=== PATIENT | male | born 1985 | race Two or more races ===

== ENCOUNTER 2019-08-30 15:42 | Emergency (ER) | payer SELFPAY ==
[~2019-08-30] VITALS: Ht 175.3 cm; Wt 83.9 kg
--- NOTE | 2019-08-30 15:45 | NUR ---
ED Nurse Note: Patient walked in to ER c/o sandra MEAD x 2 days.
[2019-08-30 15:46] VITALS: BP 111/84
--- NOTE | 2019-08-30 15:51 | Emergency Room Report ---
History of Present Illness General Chief Complaint: Fever Present Illness HPI 34 YO male presents to the ED c/o Fever x 2 days- Since Tuesday. Pt. reports measured temperatures at home of 101 degrees. Pt. reports medical Hx of LUPUS and takes FA, MTX, and Hydroxychloroquin daily x 5 years. . He reports he has been taking Tylenol for fevers, and last took some at 2:30 this afternoon SHANK TAPPER. He denies Cough, sputum production. recent travel or ill contacts. PT. denies hx of Ashtma, smoking or COPD. No other aggravating or relieving factors at this time. Pt. has not taken any medication for his symptoms. Denies QUIJANO, CP, palpitations, wheezing, skin color changes, LOC, AMS, neck pain /stiffness or sudden onset of a QUIJANO. Allergies: Coded Allergies: No Known Allergies (Unverified , 08/30/19) COVID-19 Screening Contact w/high risk pt: No Recent Travel to affected area: No Experienced COVID-19 symptoms?: Yes COVID-19 symptoms experienced: Fever (T>100.4F or >38C), Shortness of Breath COVID-19 Testing performed SHANK TAPPER: No Patient History Past Medical History: see triage record Past Surgical History: none Pertinent Family History: none Reviewed Nursing Documentation: PMH: Agreed; PSxH: Agreed Review of Systems All Other Systems: negative except mentioned in HPI Physical Exam Vital Signs Date Time Temp Pulse Resp B/P (MAP) Pulse Ox O2 Delivery O2 Flow Rate FiO2 08/30/19 15:32 98.8 97 20 111/84 (93) 97 Room Air Sp02 EP Interpretation: reviewed, normal General Appearance: no apparent distress, alert, GCS 15, non-toxic Head: normocephalic, atraumatic Eyes: bilateral eye normal inspection, bilateral eye PERRL ENT: hearing grossly normal, normal voice Neck: full range of motion Respiratory: chest non-tender, lungs clear, normal breath sounds, no respiratory distress, no accessory muscle use, no wheezing, speaking full sentences Cardiovascular #1: regular rate, rhythm, no edema Musculoskeletal: normal range of motion, gait/station normal, non-tender Neurologic: alert, motor strength/tone normal, oriented x3, sensory intact, responsive, speech normal Psychiatric: judgement/insight normal Skin: no rash, normal color Lymphatic: no adenopathy Medical Decision Making PA Attestation Dr. Jimenez is my supervising Physician whom patient management has been discussed with. Diagnostic Impression: Primary Impression: Pneumonia Qualified Codes: J18.9 - Pneumonia, unspecified organism ER Course 34 YO male presents to the ED c/o Fever x 2 days- Since Tuesday. Pt. reports measured temperatures at home of 101 degrees. Pt. reports medical Hx of LUPUS and takes FA, MTX, and Hydroxychloroquin daily x 5 years. . He reports he has been taking Tylenol for fevers, and last took some at 2:30 this afternoon SHANK TAPPER. He denies Cough, sputum production. recent travel or ill contacts. PT. denies hx of Ashtma, smoking or COPD. No other aggravating or relieving factors at this time. Pt. has not taken any medication for his symptoms. Denies QUIJANO, CP, palpitations, wheezing, skin color changes, LOC, AMS, neck pain /stiffness or sudden onset of a QUIJANO. Ddx considered but are not limited to URI, pneumonia, PE, strep pharyngitis, meningitis, COVID-19 Vital signs: Pt. is afebrile, the remaining VS are WNL H&PE are most consistent with URI- no meningeal signs, oropharynx is not involved, no evidence of bacterial infection at this time. ORDERS: CXR: ABNORMAL- Left Lower lobe infiltrate ED INTERVENTIONS: None required at this time. This patient was evaluated in the context of the global COVID-19 pandemic, which necessitated consideration that the patient might be at risk for infection with the SARS-COV-2 virus that causes COVID-19. Institutional protocols and algorithms that pertaining to the evaluation of patients at risk for COVID-19 are in a state of rapid change based on information released by multiple regulatory bodies including the CDC and federal and state organizations. These policies and algorithms were followed during the patient' s care in the emergency department Pt. placed on Levaquin as an alternative to azithromycin due to being on hydroxychloroquine a QT prolonging agent. DISCHARGE: At this time pt. is stable for d/c to home. Will provide printed patient care instructions, and any necessary prescriptions. Care plan and follow up instructions have been discussed with the patient prior to discharge. Chest X-Ray Diagnostic Results Chest X-Ray Diagnostic Results : Chest X-Ray Ordered: Yes # of Views/Limited/Complete: 1 View Indication: Shortness of Breath EP Interpretation: Yes ANNE Xray: Interpretation reviewed, by supervising MD Interpretation: no effusion, no pneumothorax, other - Left sided lower lobe infiltrate. Impression: Other - abnormal Electronically Signed by: Elana Wong PA-C Last Vital Signs Date Time Temp Pulse Resp B/P (MAP) Pulse Ox O2 Delivery O2 Flow Rate FiO2 08/30/19 15:32 98.8 97 20 111/84 (93) 97 Room Air Disposition: HOME, SELF-CARE Condition: Stable Scripts Acetaminophen* (TYLENOL EXTRA STRENGTH*) 500 Mg Tablet 500 MG ORAL Q6H PRN for Mild Pain/Temp > 100.5, #20 TAB 0 Refills Prov: Elana Wong 08/30/19 Levofloxacin* (LEVAQUIN*) 750 Mg Tablet 750 MG ORAL DAILY for 7 Days, #7 TAB Prov: Elana Wong 08/30/19 Referrals: Jennifer Gudino [facility]. [facility] Patient Instructions: Community-Acquired Pneumonia, Adult, Bfuj-sp-Yans, Fever , Adult Additional Instructions: Take medications as directed. Follow up with a Primary Care Provider in 3-5 days, even if your symptoms have resolved. --Please review list of primary care clinics, if you do not already have a primary care provider Return sooner to ED if new symptoms occur, or current symptoms become worse. Do not drink alcohol, drive, or operate heavy machinery while taking Cough Syrup as this may cause drowsiness. - Please note that this Emergency Department Report was dictated using [employer] management manager technology software, occasionally this can lead to erroneous entry secondary to interpretation by the dictation equipment. Elana Wong August 30, 2019 15:51
[2019-08-30] MEDS ORDERED: LEVAQUIN750 MG ORAL (16:11)
[2019-08-30] MEDS ORDERED: TYLENOL EXTRA500 MG ORAL (16:11)
--- NOTE | 2019-08-30 16:47 | Diagnostic Imaging Report ---
Procedure: XRAY Chest 1v Reason for study: Chest pain Comparison films: None. FINDINGS: A single one view chest is obtained. Vascularity is normal. There is left lower lobe infiltrate at the lateral left lung base. Cardiac and mediastinal silhouette are within normal limits. CP angles are sharp. The bony thorax appear unremarkable. IMPRESSION: Left basilar infiltrate.
--- NOTE | 2019-08-30 16:54 | NUR ---
ED Nurse Note: Pt cleared by health care Provider for discharge. DC instructions/prescription was given and explained to pt and verbalized understanding of teachings. All medical deviecs such as ID band removed. Pt is AAO x4, ambulatory and left with all personal belongings.
== END 2019-08-30 17:03 | disposition home or self-care (01) ==
LOC: EDBD 15:42 → EMR 15:45
DX: J18.9 Pneumonia, unspecified organism (principal); R50.9 Fever, unspecified
CPT/HCPCS: 71045; 99283